=== PATIENT | female | born 1955 | race Caucasian/White ===

== ENCOUNTER 2016-11-28 07:33 | Day surgery (SDC) | payer OTHER ==
[~2016-11-28] VITALS: Ht 162.6 cm; Wt 60.0 kg
[~2016-11-28 07:33] MED LIST: ALPR0.5T8 PO; CeFAZolin 1 GM/DEXTROSE 50 ML IV ONE; FentaNYL CITRATE-PF 100 MCG/2 ML VIAL IVP PRN; HYDROmorphone 2 MG/ML SYRINGE IVP PRN; LORazepam 2 MG/ML VIAL IVP PRN; MEPERIDINE-PF 25 MG/ML SYRINGE IVP PRN; SODIUM CHLORIDE 0.9% 1,000 ML IV ONE
[2016-11-28] MEDS ORDERED: SODIUM CHLORIDE 0.9% 1,000 ML IV ONE ×2 (07:58→08:00)
[2016-11-28] MEDS ORDERED: CeFAZolin 1 GM/DEXTROSE 50 ML IV ONE ×2 (07:58→08:00)
[2016-11-28] MEDS ORDERED: OXYGEN THERAPY IH SCH (08:00)
[2016-11-28] MEDS ORDERED: LORazepam 2 MG/ML VIAL IVP PRN (08:00)
[2016-11-28 08:23] LABS: BASOPHILS # (AUTO) 0.06 K/uL (0.00-0.20); BASOPHILS % (AUTO) 0.9 % (0.0-2.0); EOSINOPHILS # (AUTO) 0.06 K/uL (0.00-0.70); EOSINOPHILS % (AUTO) 0.96 % (1.0-6.0); HEMATOCRIT 37.5 % (36-46); HEMOGLOBIN 12.6 g/dL (12.0-16.0); LYMPHOCYTES # (AUTO) 1.3 K/uL (1.0-4.8); LYMPHOCYTES % (AUTO) 21.4 % (22.0-44.0); MEAN CORPUSCULAR HEMOGLOBIN 29.7 pg (26.0-34.0); MEAN CORPUSCULAR HGB CONC 33.6 G/dL (31.0-37.0); MEAN CORPUSCULAR VOLUME 88 fL (80-100); MONOCYTES # (AUTO) 0.4 K/uL (0.1-1.0); MONOCYTES % (AUTO) 6.8 % (2.0-9.0); NEUTROPHILS # (AUTO) 4.2 K/uL (1.8-7.7); PLATELET COUNT (AUTO) 348 K/uL (150-450); RED BLOOD CELL COUNT(AUTO) 4.24 MIL/uL (4.00-5.20); RED CELL DISTRIBUTION WIDTH 13.8 % (11.5-14.5); WHITE BLOOD COUNT (AUTO) 6.1 K/uL (4.5-11.0)
[2016-11-28 08:29] LABS: ANION GAP 6 mmol/L (8-16); CALCIUM, TOTAL 9.3 mg/dL (8.8-10.5); CARBON DIOXIDE 30 mmol/L (22-29); CHLORIDE 105 mmol/L (98-107); CREATININE 0.57 mg/dL (0.60-1.30); GLOMERULAR FILTR. RATE CALC > 60 mL/min (>60); POTASSIUM 3.8 mmol/L (3.5-5.1); SODIUM SERUM 141 mmol/L (136-145); UREA NITROGEN, BLOOD 13 mg/dL (7-18)
[2016-11-28 08:35] LABS: ALANINE AMINOTRANSFERASE 38 U/L (12-78); ALBUMIN 3.5 g/dL (3.4-5.0); ASPARTATE AMINOTRANSFERASE 17 U/L (15-37); BILIRUBIN,TOTAL 0.3 mg/dL (0.1-1.0); TOTAL PROTEIN, SERUM 6.7 g/dL (6.4-8.2)
[2016-11-28] MEDS ORDERED: LIDOCAINE HCL/PF 1% 30 ML VIAL ONE (10:48)
[2016-11-28] MEDS ORDERED: SODIUM CHLORIDE 0.9% 1,000 ML IV SCH (12:20)
[2016-11-28] MEDS ORDERED: OxyCODONE HCL/ACETAMINOPHEN 5-325 MG TABLET PO PRN ×2 (12:30)
[2016-11-28] MEDS ORDERED: HYDROmorphone HCL 2 MG TABLET PO ONE (12:30)
[2016-11-28] MEDS ORDERED: HYDROmorphone 2 MG/ML SYRINGE IVP PRN (12:30)
[2016-11-28] MEDS ORDERED: GELATIN SPONGE,ABSORBABLE 12-7 MM TP ONE (12:38)
[2016-11-28] MEDS ORDERED: HYDROmorphone HCL 2 MG TABLET ONE (13:15)
== END 2016-11-28 14:10 | disposition home or self-care (01) ==
LOC: SDS 07:33 → EDSTATUS 08:00 → SDS 14:10
PROVIDERS: ATTEND Radiology Diagnostic Radiology
DX: D05.92 Unspecified type of carcinoma in situ of left breast (principal); E03.9 Hypothyroidism, unspecified; F32.9 Major depressive disorder, single episode, unspecified; F41.9 Anxiety disorder, unspecified; Z72.89 Other problems related to lifestyle; Z98.890 Other specified postprocedural states; Z83.3 Family history of diabetes mellitus; Z80.3 Family history of malignant neoplasm of breast
CPT/HCPCS: 19105; 36415; 80053; 85025; C2618; J0690; J3490; J7030